=== PATIENT | female | born 1960 | race Caucasian/White ===

== ENCOUNTER 2018-07-31 12:11 | Observation (INO) | payer OTHER, SELFPAY ==
[2018-07-31 12:42] LABS: #Basophils 0.1 thou/uL (0.0-0.2); #Eosinphils 0.4 thou/uL (0.0-0.7); #Lymphocytes 3.4 thou/uL (1.20-3.40); #Monocytes 0.5 thou/uL (0.11-0.59); #Neutrophils 4.3 thou/uL (1.40-6.50); %Basophils 0.9 % (0.0-1.0); %Eosinophils 4.8 % (0.0-10.0); %Lymphocytes 39.4 % (21.0-51.0); %Monocytes 5.3 % (0.0-10.0); %Neutrophils 49.7 % (42.0-75.0); Hemoglobin 14.4 g/dL (12.0-16.0); Mean Corpuscular HGB CONC 31.6 g/dL (32.0-36.0); Mean Corpuscular Hemoglobin 29.7 pg (27.0-31.0); Mean Corpuscular Volume 94.2 fL (78.0-98.0); Mean Platelet Volume 6.7 fL (7.4-10.4); Platelet Count 355 thou/uL (130-400); Red Blood Cell (RBC) Count 4.85 mill/uL (4.20-5.40); White Blood Cell (WBC) Count 8.7 thou/uL (4.8-10.8)
[2018-07-31] MEDS ORDERED: Nitroglycerin 0.4 MG TAB 1 EACH ONE (12:47)
[2018-07-31] MEDS ORDERED: Nitroglycerin 2% Ointment 1 INCH/1 GM Packet ONE (12:47)
[2018-07-31 13:08] LABS: ALT (SGPT) 24 U/L (8-55); AST (SGOT) 22 U/L (5-34); Albumin 4.4 g/dL (3.5-5.0); Alkaline Phosphatase 74 U/L (40-150); Anion Gap 12 mmol/L (10-20); BUN (Urea Nitrogen) 7 mg/dL (9.8-20.1); Bilirubin, Total 0.3 mg/dL (0.2-1.2); Calc. Creatinine Clearance 0 mL/min (70-130); Calcium 10.2 mg/dL (7.8-10.44); Carbon Dioxide 29 mmol/L (22-29); Chloride 106 mmol/L (98-107); Estimated GFR-MDRD 68; Globulin 3.7 g/dL (2.4-3.5); Glucose 98 mg/dL (70-105); Potassium 4.1 mmol/L (3.5-5.1); Protein, Total 8.1 g/dL (6.0-8.3); Sodium 143 mmol/L (136-145)
[2018-07-31 13:10] LABS: Bilirubin Negative (Negative); Blood, Urine Negative (Negative); Clarity CLEAR (Clear); Glucose, Urine (Dipstick) Negative (Negative); Leukocyte Negative (Negative); Nitrite Negative (Negative); Protein, Urine (Dipstick) Negative (Neg-Trace); Specific Gravity, Urine 1.013 (1.002-1.036); Urobilinogen 0.2 mg/dL (0.2-1.0)
[2018-07-31] MEDS ORDERED: Aspirin Chewable 81 MG TAB ONE (13:14)
[2018-07-31] MEDS ORDERED: methylPREDNISolone Sod Succ/PF 125 MG/2 ML VIAL ONE (13:14)
--- NOTE | 2018-07-31 13:31 | RAD ---
CHEST 1 VIEW: HISTORY: Shortness of breath. COMPARISON: 05/06/2013. FINDINGS: Normal cardiac silhouette. The pulmonary vessels and hilum are normal. No consolidation or mass. N o pneumothorax or osseous abnormality. IMPRESSION: No acute cardiopulmonary process. POS: [facility]
--- NOTE | 2018-07-31 15:19 | PDOC.FPRHP ---
- History of Present Illness Chief Complaint: shortness of breath and chest pain History of Present Illness: 57 yo f with COPD presents with worsening shortness of breath since Monday. She was sitting at home when it started, however it is worse with exertion. She also endorses a cough, but the cough is dry and nonproductive and some chest tightness also described as pressure that has been constant since Monday, does not radiate, and no other associated sx. Denied n/v/d. Denies prior hx of CVA or NM and denies family hx of either. She has COPD but doesn't take any medication for it. She used to have HTN but hasn't been on medication for this either in years. However, she hasn't seen a doctor in years. She just scheduled an appointment with [facility] later this week but couldn't wait until then because her shortness of breath got worse. ED Course: duonebs X3, methylpred 125, aspirin, nitro paste - Allergies/Adverse Reactions Allergies Allergy/AdvReac Type Severity Reaction Status Date / Time codeine Allergy Unverified 07/31/18 17:10 - History PMHx: HTN, COPD PSHx: Hysterectomy FHx: Denies family hx of NM or CVA Social: smokes 1/2 ppd; started at age 28, smoked anywhere from 1/2 to 3ppd. ~ 30 pack year hx; denies alcohol, drug use - Review of Systems General: denies: fever/chills, weight/appetite/sleep changes, night sweats ENT: denies: nasal congestion, rhinorrhea Respiratory: reports: cough, shortness of breath, exercise intolerance. denies : congestion Cardiovascular: reports: chest pain. denies: palpitation, edema, paroxysmal nocturnal dyspnea, orthopnea Gastrointestinal: denies: nausea, vomiting, diarrhea, constipation Genitourinary: denies: incontinence, dysuria Skin: denies: rashes, lesions Musculoskeletal: denies: pain, tenderness Neurological: denies: numbness, syncope Psychological: denies: anxiety, depression - Vital signs BP: [] HR: [92] RR: [21] Tmax: [] Pox: [99]% on [RA] Wt: [] - Physical Exam Constitutional: NAD, awake, alert and oriented, well developed HEENT: normocephalic and atraumatic, PERRLA, conjunctiva clear, no scleral icterus, grossly normal vision, grossly normal hearing Neck: supple, trachea midline, no thyromegaly Heart: RRR, normal S1/S2, no murmurs/rubs/gallops, pulses present, no edema Lungs: no rales/rhonchi, no wheezing -Lungs: decreased breath sounds bilaterally Abdomen: soft, non-tender, bowel sounds present Musculoskeletal: normal structure, normal tone Skin: no rash/lesions, capillary refill <2 seconds Heme/Lymphatic: no unusual bruising or bleeding, no purpura, no petechia Psychiatric: normal mood and affect, good judgment and insight FMR H&P: Results - Labs Result Diagrams: 07/31/18 12:32 07/31/18 12:32 Lab results: WBC 8.7 thou/uL (4.8-10.8) 07/31/18 12:32 Hgb 14.4 g/dL (12.0-16.0) 07/31/18 12:32 Hct 45.7 % (36.0-47.0) 07/31/18 12:32 MCV 94.2 fL (78.0-98.0) 07/31/18 12:32 Plt Count 355 thou/uL (130-400) 07/31/18 12:32 Neutrophils % 49.7 % (42.0-75.0) 07/31/18 12:32 Sodium 143 mmol/L (136-145) 07/31/18 12:32 Potassium 4.1 mmol/L (3.5-5.1) 07/31/18 12:32 Chloride 106 mmol/L (98-107) 07/31/18 12:32 Carbon Dioxide 29 mmol/L (22-29) 07/31/18 12:32 BUN 7 mg/dL (9.8-20.1) L 07/31/18 12:32 Creatinine 0.86 mg/dL (0.6-1.1) 07/31/18 12:32 Glucose 98 mg/dL (70-105) 07/31/18 12:32 Lactic Acid 1.9 mmol/L (0.5-2.2) 07/31/18 13:28 Calcium 10.2 mg/dL (7.8-10.44) 07/31/18 12:32 Total Bilirubin 0.3 mg/dL (0.2-1.2) 07/31/18 12:32 AST 22 U/L (5-34) 07/31/18 12:32 ALT 24 U/L (8-55) 07/31/18 12:32 Alkaline Phosphatase 74 U/L (40-150) 07/31/18 12:32 B-Natriuretic Peptide 120.6 pg/mL (0-100) H 07/31/18 12:32 Serum Total Protein 8.1 g/dL (6.0-8.3) 07/31/18 12:32 Albumin 4.4 g/dL (3.5-5.0) 07/31/18 12:32 Urine Ketones Negative mg/dL (Negative) 07/31/18 12:45 Urine Blood Negative (Negative) 07/31/18 12:45 Urine Nitrite Negative (Negative) 07/31/18 12:45 Ur Leukocyte Esterase Negative (Negative) 07/31/18 12:45 - EKG Interpretation EKG: NSR no signs of ischemia - Radiology Interpretation Chest x-ray Status: image reviewed by me, report reviewed by me Additional comment: mild hyperinflation FMR H&P: A/P - Problem List (1) Atypical chest pain Current Visit: Yes Status: Acute Code(s): R07.89 - OTHER CHEST PAIN (2) COPD exacerbation Current Visit: Yes Status: Acute Code(s): J44.1 - CHRONIC OBSTRUCTIVE PULMONARY DISEASE W (ACUTE) EXACERBATION (3) HTN (hypertension) Current Visit: Yes Status: Acute Code(s): I10 - ESSENTIAL (PRIMARY) HYPERTENSION - Plan Atypical Chest Pain -NM vs COPD vs anxiety vs costochondritis vs GERD vs other -CXR nl, EKG wnl, trop neg x1 -Heart score 4 -Stress test in the AM, NPO @ midnight -TSH -FLP in AM -consider echo as BNP elevated, and pt presents with worsening SOB Copd Exacerbation -Wheezing on exam per ED physician -Efra yanna Q6H -Alb neb q2 PRN -Hx of >30 PY smoking -Prednisone 40 mg, azithromycin for anti-inflammatory properties -Start dulera -Continue to monitor respiratory status HTN, uncontrolled -Elevated 200s/100s on presentation -Has not been taking medication at home -Start lisinopril 5 mg, renal protective -Hydralazine PRN for HTN, BP >180/110 (hold any beta blockers for stress in AM) Tobacco abuse -certified alcohol and drug counselor cessation ->30 PY smoking hx Dispo: Tele obs Diet: HH, NPO @ midnight Physician: has appointment at [facility], has not established care DVT ppx: SCDs Code status: full FMR H&P: Upper Level - Pertinent history 57 yo f with shortness of breath and chest tightness/presure, no fam hx or pmhx of NM or CVA, but pmhx of HTN, improved after duonebs and nitro admitted for typical chest pain and a COPD exacerbation. PMHX: HTN, COPD Social Hx: smoking ~30 pack year hx, current smoker Vitals: BP: 181/83-205/106 HR: 79 RR: 19-27 O2sat: 100% RA T:98.0 PE: NAD Decreased breath sounds bilaterally, no wheezing, ronchi, rales RRR, no m/r/g, no peripheral edema, 2+ peripheral pulses b/l lower extremities abdomen soft, nontender, hypoactive bowel sounds labs: BNP: 120 trop X1 neg EKG: NSR no signs of ischemia A/P: Typical Chest Pain- -trend troponins -Hrt score: 4 -admite and cardiolyte pharm stress test in am; npo at midnight -consider echo for elevated BNP and worsening shortness of breath -flp in am -repeat EKG if cp returns COPD exacerbation- -prednisone 40mg daily -azithromicin 500mg now, 250mg daily for 4 days -duonebs q4h sched -albuterol neb q2h prn shortness of breath -start dulera daily Hypertensive urgency- -monitor overnight -Will start lisinopril 5mg daily Diet: NPO at midnight; HH otherwise DVT prophylaxis: SCDs CODE: FULL - Plan Date/Time: 07/31/18 2390 I have evaluated this patient and agree with findings/plan as outlined by grinder set up operator internal resident. Pertinent changes/additions are listed here. Addendum - Attending - Attending Attestation Date/Time: 07/31/18 5629 I personally evaluated the patient and discussed the management with Dr. Reyes/ Jeff. I agree with the History, Examination, Assessment and Plan documented above with any addition or exceptions noted below. Patient here for suspected COPD exacerbation due to extensive tobacco use. No evidence of hypoxia. She also has chest pain. Will admit for COPD exacerbation and ACS rule out though unlikely. Consider stress testing, risk stratify, and treat COPD with nebs, steroids, and start initial control meds. Anticipate 1-2 day hospitalization.
[2018-07-31] MEDS ORDERED: Nitroglycerin 0.4 MG TAB (25 Tab Bottle) PO PRN (16:53)
[2018-07-31] MEDS ORDERED: Albuterol Sulfate 2.5 mg/3 ml Neb NEB PRN (16:53)
[2018-07-31] MEDS ORDERED: hydrALAZINE 20 MG/ML VIAL SLOW IVP PRN (16:57)
[2018-07-31] MEDS ORDERED: Azithromycin 250 MG TAB PO SCH (17:00)
[2018-07-31] MEDS ORDERED: Azithromycin 250 MG TAB ONE (18:48)
[2018-07-31 20:40] VITALS: BMI 33.2
[2018-07-31] MEDS ORDERED: Acetaminophen 325 MG TAB PO PRN (21:13)
[2018-07-31] MEDS: Nitroglycerin 2% Ointment 1 INCH/1 GM Packet TOP SCH (23:02)
[2018-08-01] MEDS: Nitroglycerin 2% Ointment 1 INCH/1 GM Packet TOP SCH (05:24)
[2018-08-01 06:09] LABS: Cardiac Risk 4.5 (Less than 4.5)
[2018-08-01] MEDS ORDERED: Mometasone/Formoterol 120 PUFF INHALER INH SCH (06:30)
--- NOTE | 2018-08-01 06:31 | PDOC.FM ---
- Subjective Subjective: Feeling better this morning. Denies chest pain. Shortness of breath resolved after neb treatment. Endorses orthopnea and leg swelling. Reports she used to be on blood pressure meds but has not taken them for a long time. Also requests something for her heartburn. - Objective MAR Reviewed: Yes Vital Signs & Weight: Vital Signs (12 hours) Temp Pulse Resp BP Pulse Ox 08/01/18 03:48 98.7 F 86 18 127/60 91 L 08/01/18 01:04 96 20 96 07/31/18 23:46 98.0 F 92 18 160/70 H 93 L 07/31/18 20:16 98.2 F 91 21 H 179/75 H 97 07/31/18 19:16 92 21 H 99 Weight Weight 82.418 kg Result Diagrams: 07/31/18 12:32 07/31/18 12:32 Phys Exam - Physical Examination Constitutional: NAD HEENT: moist MMs Neck: supple Respiratory: no wheezing, clear to auscultation bilateral Cardiovascular: RRR, no significant murmur Gastrointestinal: soft, non-tender, positive bowel sounds Musculoskeletal: no edema Neurological: non-focal Psychiatric: normal affect, A&O x 3 Skin: cap refill <2 seconds Dx/Plan (1) Atypical chest pain Code(s): R07.89 - OTHER CHEST PAIN Status: Acute (2) COPD exacerbation Code(s): J44.1 - CHRONIC OBSTRUCTIVE PULMONARY DISEASE W (ACUTE) EXACERBATION Status: Acute (3) Tobacco abuse Code(s): Z72.0 - TOBACCO USE Status: Chronic (4) HTN (hypertension) Code(s): I10 - ESSENTIAL (PRIMARY) HYPERTENSION Status: Chronic - Plan Plan: Ms Stallworth is a 57yo female presenting with atypical chest pain in COPD exacerbation Atypical Chest Pain - CXR nml, EKG No ST segment changes, trop neg x2 - Heart score 4 - TSH pending - FLP wnl - NPO for stress test this AM - BNP 120.6, endorses orthopnea, edema. Echo ordered COPD Exacerbation - Duonebs q6h AMBER, Albuterol q2h PRN - Prednisone 40mg, azithromycin for anti-inflammatory - Start dulera - Will need outpt spirometry, has never had before GERD - Tums PRN - Ranitidine PRN HTN, uncontrolled - 200s/100s on presentation, noncompliant with meds at home - Continue lisinopril 5mg - Hydralazine PRN for BP >180/110 Tobacco abuse - >30 PY smoking hx - Encourage cessation Code status: FULL DVT ppx: SCDs Physician: [facility], has not established care Addendum - Attending - Attending Attestation Date/Time: 08/01/18 4163 I personally evaluated the patient and discussed the management with Dr. Cottrell. I agree with the History, Examination, Assessment and Plan documented above with any addition or exceptions noted below. Patient doing well. Reports shortness of breath resolved. Stress test result pending. We have started her on nursing home COPD control. Continue nebs, steroids for COPD. With normal stress result, will likely discharge home later today as she has appointment with our clinic tomorrow which will allow us short term follow up.
[2018-08-01] MEDS ORDERED: Calcium Carbonate 500 MG ChewTAB PO PRN (07:58)
[2018-08-01] MEDS ORDERED: Famotidine 20 MG TAB PO PRN (07:58)
[2018-08-01] MEDS ORDERED: Calcium Carbonate 500 MG ChewTAB PO SCH (08:00)
[2018-08-01] MEDS ORDERED: Ondansetron PF 4 MG/2 ML Vial IVP PRN (08:14)
[2018-08-01] MEDS ORDERED: Ondansetron ORAL SOLN. 4 MG/5 ML UDCUP PO PRN (08:14)
[2018-08-01] MEDS ORDERED: predniSONE 20 MG TAB PO SCH (09:00)
[2018-08-01] MEDS ORDERED: Azithromycin 250 MG TAB PO SCH ×2 (09:00)
[2018-08-01] MEDS ORDERED: Regadenoson 0.4 MG/5 ML SYRINGE ONE (09:37)
--- NOTE | 2018-08-01 12:17 | NM ---
NUCLEAR MEDICINE CARDIAC STRESS ONLY: HISTORY: Chest pain. COMPARISON: None. TECHNIQUE: The patient was administered 32 millicuries of technetium 99m sestamibi intravenously. Stress imagin g was performed. FINDINGS: Stress images demonstrate a homogeneous distribution of the radiotracer. End-diastolic volume is 91 mL. End-systolic volume is 41 mL. CARDIAC GATING: Normal wall motion and thickening. EJECTION FRACTION: 55% IMPRESSION: 1. Homogeneous distribution of the radiotracer in the left ventricle. 2. Ejection fraction 55%. POS: [facility]
[2018-08-01 15:19] VITALS: BP 148/66; TEMP 98.2
--- NOTE | 2018-08-02 12:27 | DIS ---
DATE OF ADMISSION: 07/31/2018 DATE OF DISCHARGE: 08/01/2018 RESIDENT: Holly Cottrell MD, PGY-1 ADMITTING ATTENDING: Neal Guevara MD DISCHARGE ATTENDING: Neal Guevara MD CONSULTS: None. PROCEDURES: 1. Chest x-ray, no acute cardiopulmonary process. 2. Nuclear stress test. Homogeneous distribution of the radiotracer in the left ventricle. Ejection fraction 55%. PRIMARY DIAGNOSES: 1. Atypical chest pain. 2. Chronic obstructive pulmonary disease exacerbation. SECONDARY DIAGNOSES: 1. Gastroesophageal reflux disease. 2. Hypertension, uncontrolled. 3. Tobacco abuse. DISCHARGE MEDICATIONS: 1. Pepcid 20 mg b.i.d. 2. Dulera two inhalations b.i.d. 3. Prednisone 20 mg daily. Discontinued medications: None. HISTORY OF PRESENT ILLNESS/HOSPITAL COURSE: Ms. Stallworth is a 57-year-old female with past medical history of COPD, who presented to the ED for worsening shortness of breath and a dry nonproductive cough. She had some tightness and pressure in her chest as well. She is not on any medications for COPD and reports not having a spirometry test performed. She did have an appointment scheduled with Dr. Klein later in the week, but was unable to make it to that appointment due to this worsening shortness of breath. In the ED, she received DuoNeb x3, methylprednisolone, aspirin, and nitro paste. After the DuoNeb, she reported resolution of symptoms and pain and shortness of breath did not recur. Her vital signs were notable for hypertension as high as 179/75. This was after she had received multiple DuoNeb and actually decreased to 127/60 at one point overnight without any blood pressure medication or p.r.n. use. Her labs were remarkable for BNP elevated at 120.6. Procalcitonin was obtained at 0.03 and normal LFTs. UA showed no signs of infection. She has a [id number] smoking history. For her atypical chest pain, chest x-ray was normal. EKG showed no ST-segment changes. Troponins were negative x2. Her HeartScore was 4. Stress test showed no reversible ischemia due to the BNP and echo was ordered that ultimately the patient would like to have echo performed as outpatient. COPD exacerbation was treated with DuoNeb q.6 scheduled, albuterol q.2 p.r.n. Prednisone and azithromycin was not continued due to the negative procalcitonin. The patient received a voucher for 1 month free of Dulera. She can follow up as outpatient for spirometry and further treatment of her COPD with a medication regimen that is compatible with her insurance. She experienced symptoms of GERD that resolved with Tums and ranitidine. She has a history of hypertension that is currently uncontrolled. She was on medications in the past but has not been on them for years. She was normotensive at discharge. This can be followed up outpatient. She has a history of tobacco abuse. We encourage cessation. This can also be followed up as outpatient. DISPOSITION: Stable. DISCHARGE INSTRUCTIONS: 1. Location: Home. 2. Diet: Heart healthy. 3. Activity: No restrictions. 4. Followup: Follow up with Dr. Klein on 08/02/2018. Job ID: [id number]
--- NOTE | 2018-08-04 15:31 | EKG ---
Test Reason : Blood Pressure : / mmHG Vent. Rate : 092 BPM Atrial Rate : 092 BPM P-R Int : 120 ms QRS Dur : 090 ms QT Int : 392 ms P-R-T Axes : -23 -23 004 degrees QTc Int : 484 ms Normal sinus rhythm Moderate voltage criteria for LVH, may be normal variant Prolonged QT No STEMI Abnormal ECG Confirmed by JEREMY Solorio, SHASHI ([id number]), subeditor COLT BYRD ([id number]) on 08/04/2018 3:31:06 PM Referred By: Confirmed By:SHASHI LUNA M.D.
== END 2018-08-01 18:44 | disposition home or self-care (01) ==
LOC: ERS 12:11 → ERHOLD 15:07 → 2SW 20:37
PROVIDERS: ADMIT Student in an Organized Health Care Education/Training Program; ATTEND Student in an Organized Health Care Education/Training Program
DX: R07.89 Other chest pain (principal); R06.02 Shortness of breath; J44.1 Chronic obstructive pulmonary disease with (acute) exacerbation; K21.9 Gastro-esophageal reflux disease without esophagitis; I10 Essential (primary) hypertension; I16.0 Hypertensive urgency; F17.210 Nicotine dependence, cigarettes, uncomplicated; Z88.0 Allergy status to penicillin; Z88.6 Allergy status to analgesic agent
CPT/HCPCS: 36415; 71045; 78452; 80053; 80061; 81003; 83605; 83880; 84145; 84443; 84484; 85025; 87040; 87804; 93005; 93017; 94640; 94644; 94760; 96361; 96374; 96375; A9500; G0378; J2405; J2785; J2930; J7620; Q0162

== ENCOUNTER 2018-10-16 13:32 | Outpatient (CLI) | payer OTHER ==
--- NOTE | 2018-10-16 14:37 | MMO ---
Bilateral MAMMO Bilat Screen [facility]. CLINICAL HISTORY: Patient is 57 years old and is seen for screening. The patient has the following family history of breast cancer: mother, at age 40, DIAGNOSED AGAIN AT AGE 50. VIEWS: The views performed were: bilateral craniocaudal with tomosynthesis and bilateral mediolateral oblique with tomosynthesis. MAMMOGRAM FINDINGS: There are scattered fibroglandular densities. Finding 1: There are several intramammary lymph nodes seen in the upper-outer region of the right breast. Finding 2: There are benign appearing calcifications seen in both breasts. There are no suspicious masses, suspicious calcifications, or new areas of architectural distortion. IMPRESSION: THERE IS NO MAMMOGRAPHIC EVIDENCE OF MALIGNANCY. A ROUTINE FOLLOW-UP MAMMOGRAM IN 1 YEAR IS RECOMMENDED. THE RESULTS OF THIS EXAM WERE SENT TO THE PATIENT. ACR BI-RADS Category 2 - Benign finding MAMMOGRAPHY NOTE: 1. A negative mammogram report should not delay a biopsy if a dominant of clinically suspicious mass is present. 2. Approximately 10% to 15% of breast cancers are not detected by mammography. 3. Adenosis and dense breasts may obscure an underlying neoplasm.
== END 2018-10-16 13:33 | disposition home or self-care (01) ==
LOC: BICMAMMO 13:32
PROVIDERS: ATTEND Specialist
DX: Z12.31 Encounter for screening mammogram for malignant neoplasm of breast (principal); Z80.3 Family history of malignant neoplasm of breast
CPT/HCPCS: 77063; 77067

== ENCOUNTER 2019-05-22 07:05 | Emergency (ER) | payer OTHER ==
[2019-05-22] MEDS ORDERED: Ondansetron PF 4 MG/2 ML Vial ONE (07:41)
[2019-05-22] MEDS ORDERED: Morphine 4 MG/ML VIAL ONE ×3 (07:42→10:41)
[2019-05-22 07:54] LABS: #Lymphocytes 1.7 thou/uL (1.20-3.40); #Monocytes 0.4 thou/uL (0.11-0.59); #Neutrophils 12.5 thou/uL (1.40-6.50); %Basophils 0.3 % (0.0-1.0); %Eosinophils 0.1 % (0.0-10.0); %Lymphocytes 11.9 % (21.0-51.0); %Monocytes 2.4 % (0.0-10.0); %Neutrophils 85.3 % (42.0-75.0); Hemoglobin 12.3 g/dL (12.0-16.0); Mean Corpuscular HGB CONC 32.3 g/dL (32.0-36.0); Mean Corpuscular Hemoglobin 28.8 pg (27.0-31.0); Mean Corpuscular Volume 89.3 fL (78.0-98.0); Mean Platelet Volume 6.8 fL (7.4-10.4); Platelet Count 303 thou/uL (130-400); Red Blood Cell (RBC) Count 4.26 mill/uL (4.20-5.40); White Blood Cell (WBC) Count 14.6 thou/uL (4.8-10.8)
[2019-05-22 08:07] LABS: ALT (SGPT) 16 U/L (8-55); AST (SGOT) 15 U/L (5-34); Albumin 4.5 g/dL (3.5-5.0); Alkaline Phosphatase 87 U/L (40-110); Anion Gap 12 mmol/L (10-20); BUN (Urea Nitrogen) 7 mg/dL (9.8-20.1); Bilirubin, Total 0.3 mg/dL (0.2-1.2); Calc. Creatinine Clearance 0 mL/min (70-130); Calcium 9.6 mg/dL (7.8-10.44); Carbon Dioxide 27 mmol/L (22-29); Chloride 104 mmol/L (98-107); Estimated GFR-MDRD 78; Glucose 169 mg/dL (70-105); Lipase 4 U/L (8-78); Potassium 4.3 mmol/L (3.5-5.1); Protein, Total 7.5 g/dL (6.0-8.3); Sodium 139 mmol/L (136-145)
--- NOTE | 2019-05-22 09:15 | CT ---
CT Abdomen Pelvis W Con History: Epigastric pain. Comparison: None. Findings: Lung bases are clear. No pericardial effusion. There is a wedge-shaped hypoattenuation with in hepatic segment Willi and IVb which may be sequelae of portal venous thrombosis. There is mild thickening of the gallbladder wall with small volume pericholecystic fluid. The aortic contour is nonaneurysmal. Moderate atherosclerotic plaque. Normal proximal small bowel rot ation. Moderate diverticular disease sigmoid colon without active current inflammation. No hydronephrosis. Spleen is unremarkable. Small sliding hiatal hernia. No free intraperitoneal gas or fluid. There is a lumbosacral transitional vertebra with the enlarged right L5 transverse process fused with the sacrum. Impression: 1. Linear hypoattenuation within hepatic segment 4A and 4B has the appearance of transient hepatic at tenuation difference which may be sequelae of portal venous thrombosis. 2. Distended gallbladder with mild wall thickening and low-grade pericholecystic fluid. Recommend cor relation with LFTs to evaluate for acute cholecystitis. Additionally, ultrasound may be beneficial. 3. Moderate diverticular disease without active current inflammation. 4. Small nodule lateral limb left adrenal gland. Nonemergent follow-up CT or MRI adrenal protocol rec ommended.
--- NOTE | 2019-05-22 10:07 | ULT ---
Right upper quadrant ultrasound: 05/22/2019 COMPARISON: None HISTORY: Right upper quadrant pain with nausea/vomiting TECHNIQUE: Multiplanar grayscale sonographic imaging of the right upper quadrant provided. FINDINGS: Imaged pancreas unremarkable. Distal body/tail obscured by bowel gas. No focal liver lesion or intrahepatic biliary dilatation is seen. Numerous shadowing gallstones are n oted within the gallbladder lumen. No gallbladder wall thickening or pericholecystic fluid. The gear tooth lapping machine operator reports a negative Spencer's sign. The common bile duct measures 4 mm, within normal limits. Right kidney measures 10.4 cm in craniocaudal dimension and demonstrates no evidence for stone, hydro nephrosis, or mass. IMPRESSION: Cholelithiasis. No sonographic evidence of cholecystitis or biliary dilatation.
[2019-05-22] MEDS ORDERED: Iopamidol-370 76% 500 ML 1 ML ONE (10:58)
--- NOTE | 2019-05-22 11:00 | RAD ---
RADIOGRAPH CHEST 1 VIEW: DATE: 05/22/19 TIME: 0859 hours HISTORY: 58-year-old female with chest pain. FINDINGS: There are no air space densities, pulmonary edema, pneumothorax, or cardiomegaly. The lateral costop hrenic angles are sharp. IMPRESSION: No acute cardiopulmonary findings. gabriela [] POS: [facility]
== END 2019-05-22 11:05 | disposition home or self-care (01) ==
LOC: ERS 07:05
DX: K80.20 Calculus of gallbladder without cholecystitis without obstruction (principal); I10 Essential (primary) hypertension; F32.9 Major depressive disorder, single episode, unspecified; F17.210 Nicotine dependence, cigarettes, uncomplicated; Z79.899 Other long term (current) drug therapy
CPT/HCPCS: 36415; 71045; 74177; 76705; 80053; 83690; 84484; 85025; 93005; 96361; 96374; 96375; 96376; J2270; J2405; Q9967

== ENCOUNTER 2019-05-27 11:54 | Outpatient (CLI) | payer OTHER | END 2019-05-27 11:55 | disposition home or self-care (01) | LOC: LABBT 11:54 | PROVIDERS: ATTEND Specialist | DX: Z01.818 Encounter for other preprocedural examination (principal); K80.00 Calculus of gallbladder with acute cholecystitis without obstruction | CPT/HCPCS: 93005; 93010 ==

== ENCOUNTER 2019-05-28 08:29 | Day surgery (SDC) | payer OTHER ==
[2019-05-27 12:04] VITALS: BMI 30.9
[2019-05-28] MEDS ORDERED: Ketorolac Tromethamine 30 MG/ML VIAL ONE (08:53)
[2019-05-28] MEDS ORDERED: Ondansetron PF 4 MG/2 ML Vial ONE (10:05)
[2019-05-28] MEDS ORDERED: Glycopyrrolate 0.2 MG/ML 5 ML SYRINGE ONE (10:05)
[2019-05-28] MEDS ORDERED: Dexamethasone 20 MG/5 ML VIAL ONE (10:05)
[2019-05-28] MEDS ORDERED: PROPOFOL 200 MG/20 ML VIAL ONE (10:05)
[2019-05-28] MEDS ORDERED: Rocuronium Bromide 10 MG/ML (10ML VIAL) ONE (10:05)
[2019-05-28] MEDS ORDERED: Lidocaine 1% PF 5 ML VIAL ONE (10:05)
[2019-05-28] MEDS ORDERED: Succinylcholine Chloride 20 MG/ML 10 ml SYRINGE FS ONE (10:05)
[2019-05-28] MEDS ORDERED: Bupivacaine 0.25% HCL 30 ML VIAL ONE (10:28)
[2019-05-28] MEDS ORDERED: Lidocaine 1% w/Epinephrine 1:100K 20 ML VIAL ONE (10:28)
[2019-05-28] MEDS ORDERED: Midazolam HCl 2 mg/2 ml Vial ONE (11:00)
[2019-05-28] MEDS ORDERED: Fentanyl 100 MCG/2 ML VIAL ONE (11:00)
[2019-05-28] MEDS ORDERED: Famotidine/PF 20 mg/2ml Vial ONE (11:01)
[2019-05-28] MEDS ORDERED: SUGAMMADEX SODIUM 200 MG/2 ML VIAL ONE (12:38)
--- NOTE | 2019-05-28 18:08 | OP ---
DATE OF PROCEDURE: 05/28/2019 PREOPERATIVE DIAGNOSES: Cholelithiasis with cholecystitis. POSTOPERATIVE DIAGNOSES: Cholelithiasis with cholecystitis. PROCEDURE PERFORMED: Laparoscopic cholecystectomy. ANESTHESIA: General endotracheal. INDICATIONS: The patient is a 58-year-old moderately obese white female. She presented to the emergency room recently with complaint of right upper quadrant abdominal pain. She is recognized to have cholelithiasis and a distended gallbladder. She has persistent right upper quadrant abdominal pain. She was taken to the operative room at this time for laparoscopic cholecystectomy. DESCRIPTION OF PROCEDURE: Informed consent was obtained. The patient was taken to the operating room where general endotracheal anesthesia was obtained with the patient in the supine position. The abdomen was prepped with Betadine and draped in the usual sterile fashion. 0.25% Marcaine with epinephrine was infiltrated below the umbilicus and a 10 mm infraumbilical incision was created. A Veress needle was passed through this incision into the peritoneal cavity. A pneumoperitoneum was established using carbon dioxide up to a pressure of 15 mmHg. Local anesthetic was infiltrated and 3 additional 5 mm right upper quadrant incisions were created. Through the mid incision, a 5 mm port was passed into the peritoneal cavity. The camera was passed through this port and under direct vision, an 11 port was passed through the infraumbilical incision. The camera was replaced through this port, and under direct vision, 2 additional 5 mm ports were passed through the incisions already created. The gallbladder was grasped and retracted in a cephalad direction. Minimal adhesions were bluntly stripped away from the apex of the gallbladder, and the apex was retracted laterally and inferiorly. Careful dissection was carried out to the apex of the gallbladder to identify the cystic duct and cystic artery. These were each carefully dissected circumferentially. The duct was of normal caliber. Both the duct and the artery were divided between clips, leaving 2 on the side to remain within the abdomen. The gallbladder was then dissected out of the gallbladder fossa using electrocautery and removed through the infraumbilical port site. The fascia was closed with 0 Vicryl suture and a GraNee needle. The right upper quadrant was inspected and irrigated. All irrigant was aspirated. All ports and instruments were removed under direct vision. Pneumoperitoneum was carefully evacuated. Additional local anesthetic was infiltrated into each port site. The skin edges were approximated with 4-0 Monocryl subcuticular sutures, and Dermabond was placed externally. There were no complications. The patient tolerated the procedure well and was taken to the recovery room in stable condition. FINDINGS: The gallbladder was extraordinarily distended. There was gallbladder hydrops and clear mucoid fluid was aspirated. She had numerous large gallstones that were extracted percutaneously before gallbladder removal. The duct was small and noninflamed. A cholangiogram was not obtained. Blood loss was negligible. There were no complications. The patient tolerated the procedure well. She was taken to recovery room in stable condition. Job ID: [id number]
== END 2019-05-28 14:18 | disposition home or self-care (01) ==
LOC: SDC 08:29
PROVIDERS: ATTEND Specialist
PROC: 0FT44ZZ Resection of Gallbladder, Percutaneous Endoscopic Approach (ICD-10-PCS; principal; 2019-05-28)
DX: K80.12 Calculus of gallbladder with acute and chronic cholecystitis without obstruction (principal); K82.1 Hydrops of gallbladder; I10 Essential (primary) hypertension; F17.210 Nicotine dependence, cigarettes, uncomplicated; E66.9 Obesity, unspecified; Z68.30 Body mass index [BMI] 30.0-30.9, adult; Z79.899 Other long term (current) drug therapy; Z88.0 Allergy status to penicillin; Z88.5 Allergy status to narcotic agent
CPT/HCPCS: 88304; J0131; J0690; J1100; J1885; J2001; J2250; J2405; J2704; J3010; S0020; S0028

== ENCOUNTER 2019-06-03 16:34 | Emergency (ER) | payer OTHER ==
[2019-06-03] MEDS ORDERED: Acetaminophen 500 MG TAB ONE (17:47)
[2019-06-03 18:28] LABS: #Basophils 0.1 thou/uL (0.0-0.2); #Eosinphils 0.3 thou/uL (0.0-0.7); #Lymphocytes 1.6 thou/uL (1.20-3.40); #Monocytes 0.5 thou/uL (0.11-0.59); #Neutrophils 8.3 thou/uL (1.40-6.50); %Basophils 0.5 % (0.0-1.0); %Eosinophils 3.1 % (0.0-10.0); %Lymphocytes 14.9 % (21.0-51.0); %Monocytes 4.8 % (0.0-10.0); %Neutrophils 76.7 % (42.0-75.0); Hemoglobin 10.4 g/dL (12.0-16.0); Mean Corpuscular HGB CONC 32.8 g/dL (32.0-36.0); Mean Corpuscular Hemoglobin 29.4 pg (27.0-31.0); Mean Corpuscular Volume 89.9 fL (78.0-98.0); Mean Platelet Volume 6.4 fL (7.4-10.4); Platelet Count 419 thou/uL (130-400); RBC Distribution Width 12.8 % (11.5-14.5); Red Blood Cell (RBC) Count 3.52 mill/uL (4.20-5.40); White Blood Cell (WBC) Count 10.8 thou/uL (4.8-10.8)
[2019-06-03 18:46] LABS: ALT (SGPT) 22 U/L (8-55); AST (SGOT) 12 U/L (5-34); Albumin 3.7 g/dL (3.5-5.0); Alkaline Phosphatase 148 U/L (40-110); Anion Gap 14 mmol/L (10-20); BUN (Urea Nitrogen) 7 mg/dL (9.8-20.1); Bilirubin, Total 0.4 mg/dL (0.2-1.2); Calc. Creatinine Clearance 0 mL/min (70-130); Calcium 9.1 mg/dL (7.8-10.44); Carbon Dioxide 20 mmol/L (22-29); Chloride 105 mmol/L (98-107); Estimated GFR-MDRD 80; Globulin 3.6 g/dL (2.4-3.5); Glucose 136 mg/dL (70-105); Potassium 4.1 mmol/L (3.5-5.1); Protein, Total 7.3 g/dL (6.0-8.3); Sodium 135 mmol/L (136-145)
[2019-06-03] MEDS ORDERED: Albuterol Sulfate 2.5 mg/3 ml Neb ONE (19:01)
--- NOTE | 2019-06-03 19:05 | RAD ---
EXAM: Two views chest PROVIDED CLINICAL HISTORY: Fever and flulike symptoms. COMPARISON: 05/06/2013 FINDINGS: Cardiac silhouette and pulmonary vasculature are within normal limits. The lungs are clear. Mild deg enerative changes in the spine. Surgical clips overlie the right upper quadrant. There has been no interval change from prior exam. IMPRESSION: No acute cardiopulmonary process.
[2019-06-03] MEDS ORDERED: cefTRIAXone\\ROCEPHIN 1 GM VIAL ONE (19:15)
[2019-06-03] MEDS ORDERED: Azithromycin 500 MG VIAL ONE (19:56)
[2019-06-03 20:36] LABS: Bilirubin Negative (Negative); Blood, Urine Negative (Negative); Clarity Clear (Clear); Glucose, Urine (Dipstick) Normal (Negative); Leukocyte Negative Leu/uL (Negative); Nitrite Negative (Negative); Protein, Urine (Dipstick) Negative (Neg-Trace); Urobilinogen Normal mg/dL (Less than 2)
== END 2019-06-03 21:17 | disposition home or self-care (01) ==
LOC: ERS 16:34
DX: J44.1 Chronic obstructive pulmonary disease with (acute) exacerbation (principal); I10 Essential (primary) hypertension; F32.9 Major depressive disorder, single episode, unspecified; F17.210 Nicotine dependence, cigarettes, uncomplicated; Z79.899 Other long term (current) drug therapy
CPT/HCPCS: 36415; 71046; 80053; 81003; 85025; 87804; 94640; 96365; 96367; J0456; J0696; J7611; J7620

== ENCOUNTER 2019-11-12 04:33 | Emergency (ER) | payer OTHER, SELFPAY | END 2019-11-12 04:55 | disposition home or self-care (01) | LOC: ERS 04:33 | DX: J44.9 Chronic obstructive pulmonary disease, unspecified (principal); I10 Essential (primary) hypertension; F32.9 Major depressive disorder, single episode, unspecified; Z79.899 Other long term (current) drug therapy; Z79.51 Long term (current) use of inhaled steroids; F17.210 Nicotine dependence, cigarettes, uncomplicated | CPT/HCPCS: 99284 ==